=== PATIENT | female | born 1945 | race Two or more races ===

== ENCOUNTER → 2016-09-29 | Outpatient (CLI) | payer OTHER ==
--- NOTE | ~2016-09-29 | CT57 ---
[facility] A Service of [facility] RADIOLOGY TEXT RESULTS PATIENT: BALTA RODRIGUEZ LOCATION: [facility] : 43 UNIT #: [id number] AGE: [address]: SIVAKUMAR VENTURA APRN SEX: F ORDER DR: [id number] [facility] [address] [place], [place] [address] [id number] MR#: [id number] Acc #: [id number] NAME: BALTA RODRIGUEZ : 1945 SEX: F STUDY DATE/TIME: 09/29/2016 16:38 UNIT: [facility] ROOM: STUDY DESCRIPTION: CT Chest Wo Cont Attending Physician: Kinjal Ventura M.D. Referring Physician: Kinjal Ventura M.D. Ordering Physician: Kinjal Ventura M.D. Primary Care Physician: Pete Aldana M.D. MEDICAL IMAGING REPORT This report is preliminary unless electronic signature is present EXAM CT chest without contrast INDICATION Follow up pulmonary nodule. PROCEDURE Unenhanced CT of the chest. This CT exam was performed with one or more of the following radiation dose reduction techniques: automatic exposure control, adjustment of mA and/or kV according to patient size, and iterative reconstruction. COMPARISON 06/03/2016 FINDINGS Patchy opacities in the lower lobes shown on the previous study have resolved. There is no dense consolidation pleural fluid or pneumothorax. No adenopathy. No acute findings in the included upper abdomen. No aggressive appearing bone lesion. IMPRESSION 1. No acute findings in the chest. The lungs are clear. 2. Previously demonstrated patchy ground-glass opacities in both lung bases have resolved. Dictated by... Amadou Fonseca M.D. THIS IS AN ELECTRONICALLY VERIFIED REPORT Amadou Fonseca M.D. at 10/01/2016 2:29 PM CARLOS/garrett [facility] A Service [facility] RADIOLOGY TEXT RESULTS PATIENT: BALTA RODRIGUEZ LOCATION: [facility] : 43 UNIT #: [id number] AGE: [address]: SIVAKUMAR VENTURA APRN SEX: F ORDER DR: TD: 09/30/2016 18:23 JOB #: [id number] MEDICAL IMAGING REPORT Page 1 of 1 COPY
[2016-09-29 22:15] LABS: POC - CREATININE 1.01 mg/dL (0.44-1.03)
== END | disposition home or self-care (01) ==
LOC: CCAT 14:00
PROVIDERS: Nurse Practitioner
DX: R91.8 Other nonspecific abnormal finding of lung field (principal)
CPT/HCPCS: 71250; 82565